=== PATIENT | male | born 1970 | race Caucasian/White ===

== ENCOUNTER 2024-02-28 21:56 | Emergency (ER) | payer MEDICARE ==
[2024-02-28 22:33] VITALS: TEMP 98.9
[2024-02-28 22:41] LABS: Hematocrit 33.5 % (40.1-51.0); Hemoglobin 10.9 g/dL (13.7-17.5); Mean Cell Volume 86.8 fL (79.0-92.2); Mean Corpuscular Hemoglobin 28.2 pg (25.7-32.2); Mean Corpuscular Hgb Concent. 32.5 g/dL (32.3-36.5); Mean Platelet Volume 8.5 fL (9.4-12.4); Platelet Count 275 x10^3/uL (163-337); Red Blood Count 3.86 x10^6/uL (4.63-6.08); Red Cell Distribution Width 14.2 % (11.6-14.4); White Blood Count 6.2 x10^3/uL (4.23-9.07)
[2024-02-28] MEDS ORDERED: Sodium Chloride 0.9% 1000 ML 1,000 ML ONE (22:45)
[2024-02-28] MEDS: Sodium Chloride 0.9% 1000 ML 1,000 ML IV STA (22:46)
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
[2024-02-28 22:54] LABS: ALBUMIN 3.8 g/dL (3.5-5.0); ANION GAP 11.2 MEQ/L (5-15); BILIRUBIN,TOTAL 0.8 mg/dL (0.2-1.3); Calcium 9.1 mg/dL (8.4-10.2); Creatinine 1 0.56 mg/dL (0.66-1.25); EST GLOMERULAR FILTRATION RATE 117.9 ML/MIN; Potassium 3.4 mmol/L (3.5-5.1); Total Protein 6.7 g/dL (6.3-8.2)
[2024-02-28 22:55] LABS: MAGNESIUM 1.9 mg/dL (1.6-2.3)
[2024-02-28] MEDS ORDERED: Klor Con ONE (23:32)
[2024-02-28] MEDS: Klor Con PO ONE (23:35)
[2024-02-28 23:47] LABS: ATYPICAL LYMPHS 2 %; Eosinophil 1 % (0.00-3.0); Lymphocytes 29 % (24-44); Monocyte 6 % (0.0-12.0); Neutrophils 62 % (1.78-5.38); Ovalocytes 1+; Platelet Estimate NORMAL (NORMAL); Poikilocytosis 1+; Total Cells Counted 100
[2024-02-29 00:27] LABS: Appearance Clear (Clear); Bacteria None Seen /HPF (None Seen); Bilirubin Negative (Negative); Blood Negative (Negative); Epithelial Cells None Seen /HPF (None Seen); Glucose, Urine Negative (Negative); Hyaline Casts NONE SEEN /LPF (0-2); Ketones Negative (Negative); Leukocyte Esterase Trace (Negative); Nitrite Negative (Negative); Protein,Urine Dip Negative (Negative); RBC 0-2 /HPF (0-5); Specific Gravity <=1.005 (1.005-1.030); WBC 0-2 /HPF (0-5)
[2024-02-29 00:28] LABS: ADD URINE CULTURE? NO (NO)
[2024-02-29 05:51] VITALS: BP 137/70; PULSE 63; RESP 12; O2SAT 96
== END 2024-02-29 06:55 | disposition home or self-care (01) ==
LOC: ED 21:56
DX: T67.5XXA Heat exhaustion, unspecified, initial encounter (principal); X50.9XXA Other and unspecified overexertion or strenuous movements or postures, initial encounter; Y93.55 Activity, bike riding; E87.6 Hypokalemia; R42 Dizziness and giddiness; E86.0 Dehydration; Z72.0 Tobacco use; Z59.00 Homelessness unspecified; Z59.82 Transportation insecurity; Z59.41 Food insecurity
CPT/HCPCS: 36000; 36415; 80053; 81001; 82550; 83735; 84484; 85025; 93005; 93041; 94760; 99284; A9270-GY